=== PATIENT | female | born 1960 | race Caucasian/White ===

== ENCOUNTER → 2016-09-26 | Day surgery (SDC) | payer MEDICARE, OTHER ==
[~2016-09-26] MED LIST: BACLOFEN10 MG PO; HYDROCODON-ACE1 EAC5 PO; METOPROLOL SUCC25 MG PO; NOVOLOG100 UNITS/ SUBQ; OMEPRAZOLE40 M1 PO; PROAIR HFA8.5 GM; ROSUVASTATIN CA20 MG; SYNTHROID25 MCG PO; TOUJEO SOL300 UNIT/1; VITAMIN D250000 UNIT PO
--- NOTE | ~2016-09-26 | EKG ---
PATIENT: MARLON KWAN UNIT #: [id number] Ventricular Rate: 79 BPM Atrial Rate: 79 BPM P-R Interval: 146 ms QRS Duration: 88 ms Q-T Interval: 388 ms QTC Calculation(Bezet): 444 ms P Mullan: 63 degrees Calculated R Mullan: 44 degrees Calculated T Mullan: 65 degrees Diagnosis Line: Normal sinus rhythm Diagnosis Line: Normal ECG Diagnosis Line: No previous ECGs available Diagnosis Line: Confirmed by LESVIA ONOFRE MD ([id number]) on Diagnosis Line: 09/27/2016 2:52:42 PM INTERPRETING MD: KATHARINE
--- NOTE | ~2016-09-26 | OR ---
Unit #: [id number] #: [id number] Patient: MARLON DELUCA [id number] [address] [address] [id number] MR#: [id number] NAME: MARLON DELUCA ROOM: Date of Procedure: 09/26/2016 Admission Date: 09/26/2016 Surgeon: David Levy M.D. : 1960 Attending Physician: David Levy M.D. Primary Care Physician: Generic Doctor Not In System OPERATIVE REPORT PREOPERATIVE DIAGNOSES 1. Chronic intractable low back pain secondary to multilevel degenerative disk disease. 2. Chronic pain syndrome. POSTOPERATIVE DIAGNOSES 1. Chronic intractable low back pain secondary to multilevel degenerative disk disease. 2. Chronic pain syndrome. PROCEDURES PERFORMED 1. Implantation of [employer] SynchroMed intrathecal pain pump. 2. Implantation of Ascenda catheter. 3. Physician filling of pump. 4. Fluoroscopy. 5. Removal of spinal cord stimulator system. 6. Removal of spinal cord stimulator electrode. SURGICAL INDICATION AND RATIONALE Ms. Suellen Deluca is a pleasant 56-year-old female who has been having intractable low back pain radiating down both the lower extremities, for which she has tried conservative treatments in the past and also had a spinal cord stimulator implanted for this pain. The patient, however, is continuing to use oral opioids in escalating doses and on further evaluation, the patient does not want to have any surgical intervention such as orthopedic spine surgeon. The patient has undergone an epidural pain pump trial using hydromorphone and she has had very good results, resulting in about 80% to 85% reduction in pain. The patient is here to have an intrathecal pain pump implanted. The patient has also undergone a psychological evaluation along with a cardiac clearance both of which did not show any contraindications. The patient also has had an extensive education process with me regarding the risks, benefits, and alternatives available in addition to the consent decree. All the patient's questions were answered to her satisfaction and I used a teach-back method to make sure that she understood my explanations. The patient also had an in-detailed discussion with Samantha Villarreal, a [employer] associate financial representative regarding the consent decree and all the patient's questions were answered to her satisfaction. DESCRIPTION OF PROCEDURE After obtaining full informed consent and after discussion with the patient of possible complications including infection, bleeding, Unit #: [id number] #: [id number] Patient: MARLON DELUCA paralysis, spinal headaches, , and other perioperative complications were discussed with the patient and consent was obtained in front of the preoperative nurse, Ese. The patient was then taken back to the procedure room, where a time-out was done in accordance to the joint commission guidelines where the patient's identity, procedure, and site of procedure were verified. The patient received antibiotic coverage 30 minutes before entering the operating room. Then, the anesthesiologist induced general anesthesia and positioned the patient in the prone position. The patient was prepped and draped in the usual fashion. Then, under fluoroscopic view, I was able identify the L2-3 interspace, which happened to be where the previous incisions for the spinal cord stimulator were. Those skin target sites were anesthetized and then I used a #10 blade to make an incision over the previous incisions. Without much difficulty, I was able to release the anchors of the 2 electrodes and the battery belonging to the spinal cord stimulator. I then removed the entire system completely. After doing this, I anesthetized the skin in the left lower back and made an incision measuring 5.5 cm. An incision was made and with the help of the Bovie, I was able to create a pocket for the SynchroMed II pump. Once the pocket was created, it was copiously irrigated with irrigant for all 3 incisions. I then placed a 17-gauge Tuohy needle into the L2-3 interspace using the lumbar incision. I was able to obtain CSF at first pass, which was clear and I then placed an Ascenda catheter through the Tuohy needle to reach the upper border of T7 under live fluoroscopic view. Once this was done, the Tuohy needle was removed along with the stylet of the catheter, and the Ascenda catheter was secured to the interspinous ligament using a special anchoring device. This anchoring device was further fortified using 3-0 Prolene sutures. I then used a tunneling device to tunnel this catheter into the pocket that have created for the pump. Once this was done, the catheter was cut to size and I used a special connecting device to connect this to a second piece of catheter, which was connected to the pump. Once this was done, I aspirated the side port of the pump using a 24-gauge Carballo needle and I was able to get CSF clearly. This means the catheter and the pump system are intact. I then placed a Tyrx pouch into the pocket and placed the pump on top of it and secured it to the underlying tissue using 3-0 Prolene sutures. I then inspected all 3 incisions and closed them in 2 layers using interrupted 3-0 Vicryl sutures. The skin was then approximated with ignacia and a Telfa-Tegaderm dressing was placed. The patient was then brought back to the recovery room for neurological monitoring. PLAN OF CARE The patient had an uneventful recovery period and was discharged home, neurologically intact with plans to return to my office in 7 days to have her ignacia removed. The patient acknowledges understanding of all the risks, benefits, and alternatives available and would like to proceed. The patient's pump is started at a daily dose of 0.35 mg and she has the ability to activate her patient therapy monitor, which will give her 3 activations at 0.02 mg a day. In other words, with total activation, the patient has the ability to receive 0.408 mg of hydromorphone a day. The [employer] catheter serial #[id number] and a [employer] pump catheter #[id number]. Dictated by... [facility] [place] Unit #: [id number] #: [id number] Patient: MARLON DELUCA TD: 10/04/2016 23:27 JOB #: [id number] OPERATIVE REPORT Page 1 of 1 X David Levy MD PROCEDURE OPERATIVE NOTE
[2016-09-26 08:33] LABS: BASOPHIL# 0.1 X10e3 (0-0.3); EOSINOPHIL# 0.2 X10e3 (0-0.7); EOSINOPHIL% 2.3 % (0.0-7.0); HEMATOCRIT 48.6 % (35.0-45.0); HEMOGLOBIN 16.4 gm/dL (12.0-16.0); LYMPHOCYTE# 2.7 X10e3 (1.0-3.5); LYMPHOCYTE% 35.4 % (17.0-45.0); MEAN CORPUSCULAR HEMOGLOBIN 28.6 PG (28-34); MEAN CORPUSCULAR HGB CONC 33.7 g/dL (30-36); MEAN PLATELET VOLUME 8.6 FL (6.5-11.5); MONOCYTE# 0.8 X10e3 (0-1.0); MONOCYTE% 10.9 % (3.0-12.0); NEUTROPHIL# 3.9 X10e3 (1.5-7.1); NEUTROPHIL% 50.4 % (40-75); PLATELET COUNT 142 X10e3 (140-420); RED BLOOD COUNT 5.72 X10e (3.90-5.30); WHITE BLOOD COUNT 7.7 X10e3 (4.0-10.5)
[2016-09-26 08:35] LABS: DIFF IND NO
[2016-09-26 08:55] LABS: CALCIUM SERUM 8.9 mg/dL (8.4-10.2); CREATININE SERUM 0.5 mg/dL (0.6-1.4); GLOM FILT RATE Estimated 106.7 mL/min (>60); POTASSIUM 3.9 mmol/L (3.5-5.1)
== END | disposition home or self-care (01) ==
LOC: CSUR 08:05
PROVIDERS: Specialist
DX: G89.4 Chronic pain syndrome (principal); M51.36 Other intervertebral disc degeneration, lumbar region; M54.5 Low back pain; E03.9 Hypothyroidism, unspecified; I10 Essential (primary) hypertension; J43.9 Emphysema, unspecified; K21.9 Gastro-esophageal reflux disease without esophagitis; E11.9 Type 2 diabetes mellitus without complications; F17.210 Nicotine dependence, cigarettes, uncomplicated; Z86.010 Personal history of colon polyps; Z79.4 Long term (current) use of insulin; Z79.899 Other long term (current) drug therapy; Z90.710 Acquired absence of both cervix and uterus; Z98.41 Cataract extraction status, right eye; Z98.42 Cataract extraction status, left eye; Z98.890 Other specified postprocedural states
CPT/HCPCS: 76001; 80048; 82947; 85025; 93005; C1772; J0330; J0690; J1170; J2250; J2405; J3010